=== PATIENT | female | born 1995 | race African-American/Black ===

== ENCOUNTER 2018-04-07 10:06 | Inpatient (IN) | payer OTHER ==
[2018-04-07 14:58] LABS: ADD MAN DIFF? NO
[2018-04-07] MEDS ORDERED: MISOPROSTOL 200 MCG TAB PR (15:00)
[2018-04-07] MEDS ORDERED: OXYTOCIN 30 UNITS/LR 500 ML IV (15:00)
[2018-04-07] MEDS ORDERED: IBUPROFEN 600 MG TAB PO (15:00)
[2018-04-07] MEDS ORDERED: CARBOPROST 250 MCG INJ IM (15:00)
[2018-04-07] MEDS ORDERED: BUTORPHANOL 2 MG INJ IV (15:00)
[2018-04-07] MEDS ORDERED: LIDOCAINE 1% (MPF) 30 ML INJ INJ (15:00)
[2018-04-07 15:01] LABS: WHITE BLOOD COUNT 6.2 10^3/ul (4.8-10.8)
[2018-04-07 15:01] LABS: EOSINOPHILS % 0.3 % (0.0-7.0); HEMATOCRIT 38.1 % (37.0-47.0); HEMOGLOBIN 13.4 g/dl (12.0-16.0); LYMPHOCYTES # 1.2 10^3/ul (0.8-2.9); LYMPHOCYTES % 19.3 % (15.0-51.0); MEAN CORPUSCULAR HEMOGLOBIN 33.7 pg (29.0-33.0); MEAN CORPUSCULAR HGB CONC 35.2 g/dl (32.0-37.0); MEAN CORPUSCULAR VOLUME 95.7 fl (82.0-101.0); MONOCYTE # 0.6 10^3/ul (0.3-0.9); MONOCYTES % 9.2 % (0.0-11.0); NEUTROPHIL # 4.4 10^3/ul (1.6-7.5); NEUTROPHILS % 70.9 % (39.0-77.0); PLATELET COUNT 110 10^3/UL (140-415); RED BLOOD COUNT 3.98 10^6/ul (4.20-5.40); RED CELL DISTRIBUTION WIDTH 11.9 % (11.5-14.5)
[2018-04-07 15:22] LABS: INR 0.93; PROTIME 12.6 Sec (11.9-14.9)
[2018-04-07] MEDS: DINOPROSTONE 10 MG VAG SUPP VAG (15:22)
[2018-04-07] MEDS: LACTATED RINGER'S 1,000 ML IV ×2 (15:22→19:42)
[2018-04-07 15:23] LABS: PARTIAL THROMBOPLASTIN TIME 25.2 Sec (25.0-35.0)
[2018-04-07 15:38] LABS: HEPATITIS B SURFACE ANTIGEN NEGATIVE (NEGATIVE)
[2018-04-08] MEDS: LACTATED RINGER'S 1,000 ML IV ×2 (01:01→03:15)
[2018-04-08] MEDS ORDERED: FENTAnyl 2MCG/ML-ROPIV 0.2% 100 ML (01:54)
[2018-04-08] MEDS ORDERED: DIPHENHYDRAMINE 50 MG INJ IV (02:30)
[2018-04-08] MEDS ORDERED: ONDANSETRON 4 MG INJ IV ×2 (02:30→06:30)
[2018-04-08] MEDS ORDERED: EPHEDrine SULFATE 50 MG/5 ML SYG IV (02:30)
[2018-04-08] MEDS ORDERED: NALOXONE (0.4 MG/ML) INJ IV (02:30)
[2018-04-08] MEDS: FENTAnyl 2MCG/ML-ROPIV 0.2% 100 ML BAG EPI (03:15)
[2018-04-08] MEDS: OXYTOCIN 30 UNITS/LR 500 ML IV ×3 (04:24→06:23)
[2018-04-08] MEDS: METHYLERGONOVINE 0.2 MG INJ IM (04:32)
[2018-04-08] MEDS ORDERED: METHYLERGONOVINE 0.2 MG INJ IM (06:30)
[2018-04-08] MEDS ORDERED: MISOPROSTOL 200 MCG TAB PR (06:30)
[2018-04-08] MEDS ORDERED: IBUPROFEN 600 MG TAB PO (06:30)
[2018-04-08] MEDS ORDERED: OXYTOCIN 30 UNITS/LR 500 ML IV (06:30)
[2018-04-08] MEDS ORDERED: MAGNESIUM HYDROXIDE 30ML CUP PO (06:30)
[2018-04-08] MEDS ORDERED: ACETAMINOPHEN 325 MG TAB PO ×2 (06:30)
[2018-04-08] MEDS ORDERED: SENNA/DOCUSATE NA (8.6MG/50MG) TAB PO (06:30)
[2018-04-08] MEDS ORDERED: DIBUCAINE 1% 30 GM OINT PR (06:30)
[2018-04-08] MEDS ORDERED: CARBOPROST 250 MCG INJ IM (06:30)
[2018-04-08] MEDS: WITCH HAZEL/GLYCERIN PAD PR (08:34)
[2018-04-08] MEDS: BENZOCAINE 20% 56 ML SPRAY TOP (08:34)
[2018-04-08] MEDS: LANOLIN 7 GM TUBE TOP (08:35)
[2018-04-08 09:52] LABS: HIV 1&2 ANTIBODY NEGATIVE (NEGATIVE)
[2018-04-08] MEDS: LACTATED RINGER'S 1,000 ML IV* (10:52)
[2018-04-08] MEDS: DOCUSATE SODIUM 100 MG CAP PO ×2 (13:14→20:51)
[2018-04-08 14:53] LABS: RAPID PLASMA REAGIN NONREACTIVE (NR)
[2018-04-09] MEDS: LACTATED RINGER'S 1,000 ML IV* ×3 (06:06→22:23)
[2018-04-09] MEDS: LACTATED RINGER'S 1,000 ML IV ×3 (06:07→22:50)
[2018-04-09 06:51] LABS: ADD MAN DIFF? NO
[2018-04-09 06:56] LABS: WHITE BLOOD COUNT 10.7 10^3/ul (4.8-10.8)
[2018-04-09 06:56] LABS: BASOPHILS % 0.1 % (0.0-2.0); EOSINOPHILS % 0.2 % (0.0-7.0); HEMATOCRIT 33.1 % (37.0-47.0); HEMOGLOBIN 11.4 g/dl (12.0-16.0); LYMPHOCYTES # 1.4 10^3/ul (0.8-2.9); LYMPHOCYTES % 12.8 % (15.0-51.0); MEAN CORPUSCULAR HEMOGLOBIN 33.1 pg (29.0-33.0); MEAN CORPUSCULAR HGB CONC 34.4 g/dl (32.0-37.0); MEAN CORPUSCULAR VOLUME 96.2 fl (82.0-101.0); MEAN PLATELET VOLUME 12.5 fl (7.4-10.4); MONOCYTE # 1.1 10^3/ul (0.3-0.9); NEUTROPHIL # 8.2 10^3/ul (1.6-7.5); NEUTROPHILS % 76.5 % (39.0-77.0); PLATELET COUNT 105 10^3/UL (140-415); RED BLOOD COUNT 3.44 10^6/ul (4.20-5.40)
[2018-04-09] MEDS: DOCUSATE SODIUM 100 MG CAP PO ×2 (08:57→20:56)
[2018-04-10] MEDS: LACTATED RINGER'S 1,000 ML IV* (06:23)
[2018-04-10] MEDS: LACTATED RINGER'S 1,000 ML IV (06:50)
[2018-04-10] MEDS: DOCUSATE SODIUM 100 MG CAP PO (09:00)
== END 2018-04-10 18:50 | disposition home or self-care (01) | DRG 775 ==
LOC: OBT 10:06 → L-D 10:16 → PP1 04-08 07:35 → OBT 12:53 → L-D 12:50
PROVIDERS: Obstetrics & Gynecology
PROC: 10E0XZZ Delivery of Products of Conception, External Approach (ICD-10-PCS; principal; 2018-04-08)
PROC: 0KQM0ZZ Repair Perineum Muscle, Open Approach (ICD-10-PCS; 2018-04-08)
PROC: 3E033VJ Introduction of Other Hormone into Peripheral Vein, Percutaneous Approach (ICD-10-PCS; 2018-04-08)
DX: O48.0 Post-term pregnancy (principal); Z3A.40 40 weeks gestation of pregnancy; O69.81X0 Labor and delivery complicated by cord around neck, without compression, not applicable or unspecified; O70.1 Second degree perineal laceration during delivery; Z37.0 Single live birth
CPT/HCPCS: 62319; 76816; 76818; 85025; 85610; 85730; 86592; 86703; 86850; 86900; 86901; 87340